=== PATIENT | male | born 1985 | race Two or more races ===

== ENCOUNTER 2018-12-19 16:40 | Emergency (ER) | payer SELFPAY ==
[~2018-12-19] VITALS: Ht 177.8 cm; Wt 65.8 kg
[2018-12-19 17:05] LABS: BASOPHILS # (AUTO) 0.1 K/uL (0.0-8.0); BASOPHILS % (AUTO) 0.8 % (0.0-2.0); EOSINOPHILS # (AUTO) 0.2 K/uL (0.0-0.7); EOSINOPHILS % (AUTO) 1.3 % (0.0-7.0); HEMATOCRIT 47.7 % (36.7-47.1); HEMOGLOBIN 16.5 g/dL (12.5-16.3); LYMPHOCYTES # (AUTO) 2.3 K/uL (20.0-40.0); LYMPHOCYTES % (AUTO) 19.6 % (20.5-51.5); MEAN CORPUSCULAR HEMOGLOBIN 30.3 uug (23.8-33.4); MEAN CORPUSCULAR HGB CONC 35 g/dL (32.5-36.3); MEAN CORPUSCULAR VOLUME 87.6 fL (73.0-96.2); MONOCYTES # (AUTO) 0.6 K/uL (2.0-10.0); MONOCYTES % (AUTO) 5.5 % (0.0-11.0); NEUTROPHILS # (AUTO) 8.5 K/uL (1.8-8.9); NEUTROPHILS % (AUTO) 72.8 % (38.5-71.5); PLATELET COUNT (AUTO) 205 K/uL (152-348); RED BLOOD CELL COUNT(AUTO) 5.45 MIL/uL (4.06-5.63); WHITE BLOOD COUNT (AUTO) 11.7 K/uL (3.6-10.2)
[2018-12-19 17:12] LABS: CREATININE 0.9 mg/dL (0.6-1.3); POTASSIUM 4.1 mmol/L (3.5-5.1)
[2018-12-19 17:19] LABS: BILIRUBIN,DIRECT 0.1 mg/dL (0.0-0.2); BILIRUBIN,TOTAL 0.6 mg/dL (0.2-1.0); TOTAL PROTEIN, SERUM 7.7 g/dL (6.4-8.2)
--- NOTE | 2018-12-19 17:49 | NUR ---
Patient discharged to home in stable conditon. Written and verbal after care instructions given. Patient verbalizes understanding of instructions.
[2018-12-19 17:50] VITALS: BP 112/67
== END 2018-12-19 17:51 | disposition home or self-care (01) ==
LOC: ER 16:43
DX: R10.9 Unspecified abdominal pain (principal); J02.9 Acute pharyngitis, unspecified; F17.290 Nicotine dependence, other tobacco product, uncomplicated
CPT/HCPCS: 36415; 83690; 85025; 86403; 87070; A4663

== ENCOUNTER 2022-01-07 20:18 | Emergency (ER) | payer BC ==
[~2022-01-07] VITALS: Ht 175.3 cm; Wt 74.8 kg
--- NOTE | 2022-01-07 20:30 | NUR ---
Dr Zacarias at bedside, MSE in progess
--- NOTE | 2022-01-07 21:03 | NUR ---
Patient discharged to home in stable condition. Written and verbal after care instructions given. Patient verbalizes understanding of instructions. Stressed follow up or return to ER for worsening s/s. pt ambulated with steady gait. denies pain. no SOB. no chest pain.
[2022-01-07 21:48] VITALS: BP 126/92
== END 2022-01-07 21:03 | disposition home or self-care (01) ==
LOC: ER 20:27
DX: J02.8 Acute pharyngitis due to other specified organisms (principal); F17.210 Nicotine dependence, cigarettes, uncomplicated
CPT/HCPCS: A4663

== ENCOUNTER 2023-10-02 00:56 | Emergency (ER) | payer BC, OTHER ==
[~2023-10-02] VITALS: Ht 172.7 cm; Wt 71.7 kg
[2023-10-02] MEDS ORDERED: KETOROLAC TROMETHAMINE 30 MG INJ ONE (01:45)
[2023-10-02] MEDS ORDERED: KETOROLAC TROMETHAMINE 30 MG INJ IM ONE (01:45)
[2023-10-02 02:32] VITALS: BP 131/94; O2SAT 100
== END 2023-10-02 02:22 | disposition home or self-care (01) ==
LOC: ER 01:02
DX: U07.1 COVID-19 (principal); R50.9 Fever, unspecified; F17.200 Nicotine dependence, unspecified, uncomplicated
CPT/HCPCS: A4606; A4663; J1885